=== PATIENT | female | born 1990 | race Caucasian/White ===

== ENCOUNTER 2018-12-08 00:27 | Inpatient (IN) ==
[2018-12-08 01:40] LABS: BASO# 0.02 X1000 (0.0-0.2); BASO% 0.2 % (0.0-0.8); EOS# 0.12 X1000 (0.0-0.7); EOS% 0.9 % (0.0-10.0); HEMATOCRIT 39.2 % (37.0-47.0); HEMOGLOBIN 12.6 g/dL (12.0-16.0); IMM GRAN# 0.03 X1000 (0.0-0.04); IMM GRAN% 0.2 % (0.0-0.5); LYMPH# 2.58 X1000 (1.2-3.4); LYMPH% 19.9 % (20.5-51.1); MCHC 32.1 g/dL (33-37); MCV 96.3 FL (81-99); MONO# 0.71 X1000 (0.11-0.59); MONO% 5.5 % (1.7-9.3); MPV 9.9 FL (7.4-10.4); NEUT% 73.3 % (42.2-75.2); PLT 346 X1000 (130-400); RBC 4.07 XMIL (4.2-5.4); RDW 12.6 % (11.5-14.5); WBC 12.96 X1000 (4.8-10.8)
[2018-12-08 02:02] LABS: AGAP 13; ALBUMIN 4.4 g/dL (3.5-5.0); ALKALINE PHOSPHATASE 92 U/L (32-104); AMYLASE 50 U/L (20-200); BUN 9 mg/dL (8-22); CALCIUM 9.6 mg/dL (8.8-10.2); CHLORIDE 102 mmol/L (98-107); COSMO 276; CREATININE 0.7 mg/dL (0.5-0.9); ESTIMATED GFR > 60; GLUCOSE 95 mg/dL (70-104); GOT 11 U/L (10-30); GPT 9 U/L (10-36); LIPASE 23 U/L (13-60); POTASSIUM 3.5 mmol/L (3.5-5.1); SODIUM 139 mmol/L (136-145); TCO2 24 mmol/L (25-35); TOTAL PROTEIN 7.7 g/dL (6.3-8.3)
[2018-12-08 02:12] LABS: BILIRUBIN URINE NEGATIVE (NEGATIVE); BLOOD URINE 4+ (NEGATIVE); CLARITY SL. CLOUDY (CLEAR); COLOR YELLOW; GLUCOSE URINE NEGATIVE (NEGATIVE); KETONE URINE NEGATIVE (NEGATIVE); LEUKOCYTES URINE 1+ (NEGATIVE); NITRITE URINE NEGATIVE (NEGATIVE); PROTEIN URINE NEGATIVE (NEGATIVE); SP GRAVITY URINE 1.015; UROBILINOGEN URINE NORMAL
[2018-12-08 02:15] LABS: URINE BACTERIA 4+ /HFP; URINE EPITHELIAL CELLS >10 /HPF (<10)
[2018-12-08 02:17] LABS: URINE WBC <10 /HPF (<10)
[2018-12-08 02:20] LABS: URINE CAST NONE SEEN /LPF; URINE RBC <10 /HPF (<10); URINE SOURCE CLEAN CATCH; URINE YEAST NONE SEEN /HPF
[2018-12-08 02:22] LABS: UR AMPHETAMINES QUAL PRESUMPTIVE POSITIVE (NONE DETECT); UR BARBITUATES QUAL NONE DETECTED (NONE DETECT); UR BENZODIAZEPIN QUAL NONE DETECTED (NONE DETECT); UR CANNABINOIDS QUAL PRESUMPTIVE POSITIVE (NONE DETECT); UR COCAINE QUAL NONE DETECTED (NONE DETECT); UR METHADONE QUAL NONE DETECTED (NONE DETECT); UR METHAMPHETAMINE QUAL PRESUMPTIVE POSITIVE (NONE DETECT); UR OPIATES QUAL NONE DETECTED (NONE DETECT); UR OXYCODONE QUAL NONE DETECTED (NONE DETECT); UR PCP QUAL NONE DETECTED (NONE DETECT); UR PROPOXYPHENE QUAL NONE DETECTED (NONE DETECT); UR TCA QUAL NONE DETECTED (NONE DETECT)
[2018-12-08] MEDS ORDERED: TORADOL IV ONE (03:15)
--- NOTE | 2018-12-08 05:47 | PROVIDER DOCUMENTATION ---
This chart was entered by Rafia Walker Scribe, acting as scribe for Rusty Boyd MD. HPI-Abdominal Pain/GI Problem - General Chief Complaint: Abdominal Pain Stated Complaint: ABD PAIN Time Seen by Provider: 12/08/18 00:54 Source: patient Allergies/Adverse Reactions: Patient Allergies Allergy/AdvReac Type Severity Reaction Status Date / Time STENTS Allergy Unknown Uncoded 12/08/18 00:47 - History of Present Illness-ABD Nature of Presenting Problems: pt is a 28 yr old female presenting with 1 day complaint of gen abdominal pain concentrated at RLQ, pt denies any nausea/vomiting or diarrhea, no urinary complaints. pt does admit hx of bladder problems and kidney stones. denies any flank or back pain Abdominal Pain Onset Location: reports: generalized abdomen Pain Radiation: reports: RLQ Quality of Pain: reports: aching Severity in ED: reports: moderate Onset/Duration: reports: this morning Timing: reports: still present Activities at Onset: reports: rest Exposure to sick contacts?: No Modifying Factors: improves with: nothing Associated Symptoms: denies: back/neck pain, constipation, diarrhea, fever/chills, genitourinary problems, nausea, vomiting Rectal Bleeding: reports: none Emesis Description: reports: none Bruising or Bleeding Gums?: No Similar Symptoms Previously?: No Recently seen or treated by another doctor?: No Review of Systems - Adult - REVIEW OF SYSTEMS - ADULT Constitutional: denies: chills, fever Eyes: reports: no symptoms reported Ears, Nose, Mouth & Throat: denies: ear pain, sinus problem, throat pain Cardiovascular: denies: chest pain, palpitations, syncope Respiratory: denies: cough, shortness of breath Gastrointestinal: reports: abdominal pain. denies: diarrhea, nausea, vomiting Genitourinary: denies: dysuria, frequency, flank pain Musculoskeletal: denies: back pain, joint pain, neck pain Integumentary: reports: no symptoms reported Neurological: denies: dizziness/vertigo, headache/migraines Psychiatric: reports: no symptoms reported Endocrine: reports: no symptoms reported Hematologic/Lymphatic: reports: no symptoms reported Allergic/Immunologic: reports: no symptoms reported All Other Systems: Reviewed and Negative Past History - Adult - PAST MEDICAL HISTORY-ADULT Review of Records: reports: Old Records Reviewed, Nursing Assessment Review, Medications Reviewed, Social history reviewed & non-contributory. Major Childhood Illnesses: reports: denies history Cardiovascular: reports: denies history Respiratory: reports: denies history Gastrointestinal: reports: denies history Obstetrical/Gynecological: reports: denies history Genitourinary: reports: kidney stones Musculoskeletal: reports: denies history Neurological: reports: denies history Endocrine/Immune: reports: denies history Other Conditions: reports: denies history - PRIOR SURGERIES/PROCEDURES Surgical/Procedure History: reports: other (stents in kidneys.) - IMMUNIZATION STATUS Childhood Immunizations: See Nurse Assessment Flu Vaccine: See Nurse Assessment - FAMILY HISTORY Family History: reviewed, not pertinent - SOCIAL HISTORY Smoking: cigarettes Provider spent 3-5 mins advising pt. on dangers of tobacco.: Discussed manners to quit use, and f/u contacts for add'l counseling. Living Situation: family Physical Exam-General - PHYSICAL EXAM-ADULT Initial Vital Signs Reviewed: Yes - CONSTITUTIONAL General Appearance: appears well, alert, no apparent distress - EYES Eyes: PERRL/EOMI - HEAD, EARS, NOSE, MOUTH & THROAT HENMT: normocephalic/atraumatic, moist mucous membranes, normal ENT inspection - NECK Neck: non-tender, full range of motion, supple, normal inspection - RESPIRATORY Respiratory: chest non-tender, lungs clear, normal breath sounds - CARDIOVASCULAR Cardiovascular: normal peripheral pulses, regular rate, rhythm, no edema - GASTROINTESTINAL (ABDOMEN) Abdominal Exam: normal bowel sounds, soft, tenderness (gen tenderness with greater tenderness at RLQ) - LYMPHATIC Lymphatic: no adenopathy - MUSCULOSKELETAL Back Exam: normal inspection, no CVA tenderness, no vertebral tenderness Extremity: normal range of motion, non-tender, normal gait, normal inspection - SKIN Integumentary: normal color, normal turgor, warm/dry - NEUROLOGIC Neurologic: grossly normal - PSYCHIATRIC Psych/Mental Status: normal mood/affect Progress - PLAN OF CARE/RESULTS Progress/Plan/Lab Results: Vital Signs - 8 hr 12/08/18 00:40 Temperature 97.9 F Pulse Rate 101 H Respiratory Rate 18 Blood Pressure 107/73 O2 Sat by Pulse Oximetry 100 Orders Category Date Time Status ED: Urine Bedside ORDERED Care 12/08/18 00:55 Active AMYLASE [CHEM] Stat Lab 12/08/18 00:55 Ordered CBC WITH ELECTRONIC DIFF [HEME] Stat Lab 12/08/18 00:55 Uncollected COMPREHENSIVE METABOLIC PANEL [CHEM] Stat Lab 12/08/18 00:55 Uncollected LIPASE [CHEM] Stat Lab 12/08/18 00:[address] W/POSS RFLX CULT [URINALYSIS] Stat Lab 12/08/18 00:55 Uncollected Result Diagrams: 12/08/18 01:30 12/08/18 01:30 - CONSULTS/PCP/HOSPITALIST Notification #1 *Consult/PCP/Hospitalist*: Dr Khan ([employer]) Time Discussed: 05:44 Consult Disposition: Will see in ED (At [facility]), other (Asked for pt to be sent to [facility].) Departure - Departure Date of Disposition Decision: 12/08/18 Time of Disposition Decision: 05:46 DIAGNOSIS: Ovarian cyst, Abdominal pain, Substance abuse, UTI (urinary tract infection) Disposition: ADMITTED INPATIENT 09 Certified Medical Emergency: Emergent Condition: Fair Referrals and Follow-Ups: None,PCP [Primary Care Provider] - - Critical Care Note This patient required my direct & personal management of CC.: Yes Attestation - Physician/ MOISES Attestation Patient care was provided by Advanced Practice Provider:: No The physician spent face to face time with patient:: Yes Advanced Practice Provider documentation review:: Supervising physician onsite and consulted in the evaluation and care of this patient. The physician did have a face to face encounter with the patient. This chart was documented by the indicated scribe, (Rafia Walker Scribe) and accurately reflects the services I performed and decisions made by me, Rusty Boyd MD, as attested by the provider's signature.
--- NOTE | 2018-12-08 07:39 | Diag Imaging Result Doc PS360 ---
EXAM: US PELVIC NON-OB (LIMITED) 12/08/2018 HISTORY: possible ovarian torsion TECHNIQUE: Endovaginal scan COMMENT: The uterus measures 6.8 x 4.1 x 2.4 cm. The endometrial stripe is not well demonstrated in the fundus but in the lower uterine segment measures approximately 5 mm. What appears to be the right ovary is enlarged measuring 5.8 x 5.5 x 4.9 cm with a relatively homogeneous isoechoic appearance to the uterus. There is an adjacent probably complex fluid collection posterior to this. There is color Doppler flow around the periphery of these abnormalities. Correlating with previous ultrasonography on 07/13/2018, and CT examinations of this date, 07/13/2018, and 06/02/2015, there has been long-standing pelvic inflammatory changes and bilateral ovarian cysts, particularly at the time of the previous examination of 07/13/2018 at which time the left ovary exceeded 6 cm in greatest dimension. The possibility of a tubo-ovarian abscess on the right and/or hydrosalpinx is suggested. The findings may also be related to long-standing endometriosis, which would be consistent with the relatively hyperechoic appearance of the left ovarian cyst on today's study. IMPRESSION: Hemorrhagic left ovarian cyst versus endometrioma. The possibility of long-standing or recurrent pelvic inflammatory disease cannot be excluded. Electronically signed by Jakob Trejo 12/08/2018 7:36 AM
--- NOTE | 2018-12-08 07:48 | Diag Imaging Result Doc PS360 ---
EXAM: CT ABD/PELVIS W/IV CONT ONLY 12/08/2018 HISTORY: abdo pain, RLQ TECHNIQUE: This exam was performed using automated exposure control, adjustment of mA or kV according to patient size, and/or use of iterative reconstruction technique. COMMENT: The current examination is compared with 07/13/2018 and 06/02/2015. There is no evidence of acute disease in the visualized portion of the chest. The liver, spleen, adrenal glands, pancreas, and kidneys are within normal limits. The gallbladder is not distended. There are no apparent stones. There is a fair amount of stool in the colon. Small bowel is not distended. Pelvis: The appendix is normal in appearance. There is a multilocular cystic mass in the left ovary measuring 5.8 cm in greatest axial dimension. The largest loculation is larger than on the previous study of 07/13/2018 however the overall size of the ovary may be somewhat smaller. Given the appearance on ultrasonography this is likely hemorrhagic and possibly an endometrioma. There is also somewhat loculated and enhancing fluid collections posteriorly and laterally on the right which may also be related to hemorrhagic cyst, hydrosalpinx or pelvic inflammatory disease. The urinary bladder is unremarkable. The regional skeleton is intact. IMPRESSION: Pelvic inflammatory process of long-standing with enlarged and multicystic left ovary. Given the appearance on ultrasonography of the largest loculation on the left, this is likely hemorrhagic and/or an endometrioma. Electronically signed by Jakob Trejo 12/08/2018 7:46 AM
[2018-12-08 08:37] LABS: BASO# 0.03 X1000 (0.0-0.2); BASO% 0.3 % (0.0-0.8); EOS% 1.9 % (0.0-10.0); HEMOGLOBIN 11.6 g/dL (12.0-16.0); IMM GRAN# 0.02 X1000 (0.0-0.04); IMM GRAN% 0.2 % (0.0-0.5); LYMPH# 3.57 X1000 (1.2-3.4); LYMPH% 34.6 % (20.5-51.1); MCH 31.1 PG (27-31); MCHC 32.2 g/dL (33-37); MCV 96.5 FL (81-99); MONO# 0.67 X1000 (0.11-0.59); MONO% 6.5 % (1.7-9.3); MPV 9.6 FL (7.4-10.4); NEUT# 5.82 X1000 (1.4-6.5); NEUT% 56.5 % (42.2-75.2); PLT 347 X1000 (130-400); RBC 3.73 XMIL (4.2-5.4); RDW 12.7 % (11.5-14.5); WBC 10.31 X1000 (4.8-10.8)
[2018-12-08] MEDS ORDERED: ZOFRAN PO PRN (09:45)
[2018-12-08] MEDS ORDERED: MEFOXIN 2 GM/D5W IV SCH (10:00)
[2018-12-08 10:19] LABS: AGAP 12; ALB/GLOB RATIO 1.2; ALBUMIN 3.8 g/dL (3.5-5.0); ALKALINE PHOSPHATASE 79 U/L (32-104); BUN 8 mg/dL (8-22); CALCIUM 8.4 mg/dL (8.8-10.2); CHLORIDE 102 mmol/L (98-107); COSMO 274; CREATININE 0.7 mg/dL (0.5-0.9); ESTIMATED GFR > 60; GLUCOSE 99 mg/dL (70-104); GOT 11 U/L (10-30); GPT 7 U/L (10-36); POTASSIUM 3.8 mmol/L (3.5-5.1); SODIUM 138 mmol/L (136-145); TCO2 24 mmol/L (25-35); TOTAL BILIRUBIN 0.23 mg/dL (0.20-1.00)
[2018-12-08] MEDS: MOTRIN PO PRN ×2 (10:36→21:19)
--- NOTE | 2018-12-08 12:23 | HISTORY AND PHYSICAL ---
ADMITTING PHYSICIAN: France Mcdonald DO. CHIEF COMPLAINT: Abdominal pain. HISTORY OF PRESENT ILLNESS: A 28-year-old, G 0, who presented to the emergency department on 12/07/2018 at approximately 11 p.m. with complaint of right lower quadrant pain. She describes the pain as sharp pain and shooting pains in her right lower quadrant. She states the pain started at 9am on 12/07. Pain is worsened by walking and moving. The pain has been improved with nothing. She denies any dysuria. She denies any back pain. She denies any nausea, vomiting, or diarrhea. She denies any fever or chills. CT of the abdomen and pelvis in the ER showed a pelvic inflammatory process of longstanding with an enlarging multicystic left kidney. Pelvic ultrasound in the ER showed a hemorrhagic left ovarian cyst versus endometrioma and a possible tubo-ovarian abscess versus hydrosalpinx on the right. The patient has a history of gonorrhea infection that was diagnosed in September. She states she was treated and did not have further sexual activity with that partner. She denies any vaginal bleeding or abnormal discharge. Her last menstrual period was 12/02/2018. Urine test negative in the ER. She does have a history of pelvic pain and presented to the ER in July with similar symptoms and similar findings on ultrasound. She also has a history of illicit drug use and last smoked methamphetamines 2 days ago. REVIEW OF SYSTEMS: Negative except as mentioned in the HPI. GYNECOLOGIC HISTORY: She is unsure of her last Pap smear but states she has had one done in the last several years. She has a history of chlamydia that was diagnosed in 2008 and a history of gonorrhea that was diagnosed in September of 2018. She states she is not currently sexually active but was approximately one month ago. PAST MEDICAL HISTORY: Denies. MEDICATIONS: None. ALLERGIES: No known drug allergies. SURGICAL HISTORY: History of ureteral stent placement secondary to kidney stones at age 20. SOCIAL HISTORY: She smokes 1 pack per day for 10 years. She denies any alcohol use. Urinary drug screen was positive for methamphetamines and marijuana. Initially, she denied any drug use but after a conversation, she did admit to recently smoking methamphetamines 2 days ago. FAMILY HISTORY: Denies. VITAL SIGNS: Temperature 97.8 degrees, heart rate 89, respiratory rate 16, blood pressure 95/59, oxygen saturation 98% on room air. LABORATORY DATA: White blood cell count 12.9, hemoglobin 12.6, hematocrit 39.2, platelets 346,000. Sodium 139, potassium 3.5, chloride 102, CO2 of 24, BUN 9, creatinine 0.7, blood sugar 95. Urinalysis, 1+ white blood cells, greater than 10 epithelial cells. Urinary drug screen positive for methamphetamines and marijuana. Urine test negative. IMAGING: CT of the abdomen and pelvis with IV contrast on 12/08/2018, there is a multilocular cystic mass in the left ovary measuring 5.8 cm in greatest axial dimension. The largest loculation is larger than on the previous study of 07/13/2018. However, the overall size of the ovary may be somewhat smaller. Given the appearance on ultrasound, this is likely hemorrhagic and possibly an endometrioma. There is also a somewhat loculated and enhancing fluid collection posteriorly and laterally on the right, which may also be related to the hemorrhagic cyst, hydrosalpinx, or pelvic inflammatory disease. The urinary bladder is unremarkable. The regional skeleton is intact. Transvaginal ultrasound on 12/08/2018, the uterus measures 6.8 x 4.1 x 2.4 cm. Endometrial stripe is not well demonstrated in the fundus but in the lower uterine segment, measures approximately 5 mm. What appears to be the right ovary is enlarged, measuring 5.8 x 5.5 x 4.9 cm with a relatively homogeneous isoechoic appearance to the uterus. There is color flow Doppler around the periphery of these abnormalities. There is an adjacent, probably complex fluid collection posterior to this. Correlating with previous ultrasound on 07/13/[address] exam of this date, there have been longstanding pelvic inflammatory changes and bilateral ovarian cysts, particularly at the time of the previous exam of 07/13/2018, at which time the left ovary exceeded 6 cm in greatest dimension. The possibility of a tubo-ovarian abscess on the right and/or hydrosalpinx is suggested. The findings may also be related to long-standing endometriosis which would be consistent with the relatively hyperechoic appearance of the left ovarian cyst. Impression: Hemorrhagic left ovarian cyst versus endometrioma. The possibility of long-standing or recurrent pelvic inflammatory disease cannot be excluded. PHYSICAL EXAMINATION: GENERAL: Alert, in no acute distress. CARDIOVASCULAR: Regular rate and rhythm. No murmurs, rubs, or gallops. LUNGS: Clear to auscultation bilaterally. No respiratory distress. ABDOMEN: Soft. Tender to palpation in the right lower quadrant. No rebound, no guarding. Nondistended. No peritoneal signs. Normal bowel sounds. PELVIC: Examination deferred while in the emergency room. EXTREMITIES: No clubbing, cyanosis, or edema. Nontender. ASSESSMENT AND PLAN: A 28-year-old, 0, with right lower quadrant pain, hemorrhagic left ovarian cyst versus endometrioma, ultrasound findings suspicious for tubo- ovarian abscess versus pelvic inflammatory disease, a recent history of gonorrhea, leukocytosis, history of recent methamphetamine use. 1. Admit to medical-surgical floor. Hemodynamically stable, afebrile. 2. Repeat CBC to assess leukocytosis and stability of hemoglobin. Trend CBC daily. 3. Will start cefoxitin 2 g intravenously every 6 hours and doxycycline 100 mg by mouth every 12 hours for suspected tubo-ovarian abscess versus pelvic inflammatory disease. 4. check urine gonorrhea and chlamydia. 5. Analgesics and antiemetics as needed. 6. Intravenous fluid hydration with lactated Ringer's at 125 an hour. 7. The patient may have a regular diet but nothing per oral at midnight for reassessment in the morning. [facility]
[2018-12-08] MEDS: LR 1,000 ML IV SCH ×3 (12:29→22:48)
[2018-12-08] MEDS: DOXYCYCLINE PO SCH ×2 (12:29→20:15)
[2018-12-08] MEDS: MEFOXIN 2 GM/D5W 2 GM/50 ML IVPB IV SCH ×2 (12:55→18:52)
[2018-12-09] MEDS: MEFOXIN 2 GM/D5W 2 GM/50 ML IVPB IV SCH ×2 (00:02→06:38)
[2018-12-09] MEDS: LR 1,000 ML IV SCH (01:22)
[2018-12-09 07:01] LABS: BASO# 0.01 X1000 (0.0-0.2); BASO% 0.1 % (0.0-0.8); EOS# 0.14 X1000 (0.0-0.7); EOS% 1.6 % (0.0-10.0); HEMATOCRIT 33.3 % (37.0-47.0); HEMOGLOBIN 10.6 g/dL (12.0-16.0); IMM GRAN# 0.02 X1000 (0.0-0.04); IMM GRAN% 0.2 % (0.0-0.5); LYMPH# 3.49 X1000 (1.2-3.4); LYMPH% 40.8 % (20.5-51.1); MCH 31.1 PG (27-31); MCHC 31.8 g/dL (33-37); MCV 97.7 FL (81-99); MONO# 0.48 X1000 (0.11-0.59); MONO% 5.6 % (1.7-9.3); NEUT# 4.41 X1000 (1.4-6.5); NEUT% 51.7 % (42.2-75.2); PLT 289 X1000 (130-400); RBC 3.41 XMIL (4.2-5.4); RDW 12.4 % (11.5-14.5); WBC 8.55 X1000 (4.8-10.8)
--- NOTE | 2018-12-09 08:18 | PROVIDER PROGRESS NOTE ---
- Subjective Pt seen and examined. Resting comfortably in bed. Pt reports doing well, but when asked how her pain was, she states she in unsure. Pt ambulating and urinating w/o difficulty. Tolorating PO medications, denies N/V. WBC trending down. Physical Exam Objective Vital Signs - 8 hr 12/09/18 03:56 Temperature 98.3 F Pulse Rate 65 Respiratory Rate 18 Blood Pressure 106/50 O2 Sat by Pulse Oximetry 93 L - Constitutional General Appearance: appears well, alert, no apparent distress - RESPIRATORY Respiratory: lungs clear - CARDIOVASCULAR Cardiovascular: regular rate, rhythm - GASTROINTESTINAL (ABDOMEN) Abdominal Exam: non tender, soft - MUSCULOSKELETAL Extremity: no calf tenderness - PSYCHIATRIC Psych/Mental Status: normal mood/affect, oriented x 3 Active Medications Generic Name Dose Route Start Last Admin Trade Name Freq PRN Reason Stop Dose Admin Doxycycline Hyclate 100 mg 12/08/18 10:00 12/08/18 20:15 Doxycycline PO 100 mg Q12HR MARY Administration Lactated Ringer's 1,000 mls @ 125 mls/hr 12/08/18 09:45 12/09/18 01:22 Lr IV Not Given .Q8H MARY Cefoxitin Sodium 2 gm in 50 mls @ 100 mls/hr 12/08/18 11:00 12/09/18 06:38 Mefoxin 2 Gm/D5w IV 100 mls/hr Q6H MARY Administration Ibuprofen 600 mg 12/08/18 09:45 12/08/18 21:19 Motrin PO 600 mg Q6H PRN PRN Administration Mild Pain Ondansetron HCl 4 mg 12/08/18 09:45 Zofran PO Q6H PRN PRN Nausea Bedside Urine ED: Urine Bedside Start: 12/08/18 00:55 Freq: ORDERED Status: Active Protocol: Activity Type Activity Date Activity User E-Sign Co-Sign Detail Recorded Client Recorded Date Recorded By Document 12/08/18 01:43 [id number] 12/08/18 01:43 [id number] 12/08/18 01:43 Point of Care [Bedside Point of Care] -Lot # [id number] - Results Negative -Control Line Visible? Yes Laboratory Results - last 24 hr 12/08/18 12/08/18 12/08/18 01:30 08:29 08:29 WBC 10.31 RBC 3.73 L Hgb 11.6 L Hct 36.0 L MCV 96.5 MCH 31.1 H MCHC 32.2 L RDW Std Deviation 12.7 Plt Count 347 MPV 9.6 Immature Gran % (Auto) 0.2 Neut % (Auto) 56.5 Lymph % (Auto) 34.6 [place] % (Auto) 6.5 Eos % (Auto) 1.9 Baso % (Auto) 0.3 Immature Gran # (Auto) 0.02 Neut # (Auto) 5.82 Lymph # (Auto) 3.57 H [place] # (Auto) 0.67 H Eos # (Auto) 0.20 Baso # (Auto) 0.03 Sodium 138 Potassium 3.8 Chloride 102 Carbon Dioxide 24 L Anion Gap 12 BUN 8 Creatinine 0.7 Estimated GFR/1.73 m2 > 60 BUN/Creatinine Ratio 11 Glucose 99 Calculated Osmolality 274 Calcium 8.4 L Total Bilirubin 0.23 AST 11 ALT 7 L Alkaline Phosphatase 79 Total Protein 7.0 Albumin 3.8 Globulin 3.2 Albumin/Globulin Ratio 1.2 Blood Type Blood Type Confirm A POSITIVE Antibody Screen 12/08/18 12/09/18 08:29 06:32 WBC 8.55 RBC 3.41 L Hgb 10.6 L Hct 33.3 L MCV 97.7 MCH 31.1 H MCHC 31.8 L RDW Std Deviation 12.4 Plt Count 289 MPV 10.0 Immature Gran % (Auto) 0.2 Neut % (Auto) 51.7 Lymph % (Auto) 40.8 [place] % (Auto) 5.6 Eos % (Auto) 1.6 Baso % (Auto) 0.1 Immature Gran # (Auto) 0.02 Neut # (Auto) 4.41 Lymph # (Auto) 3.49 H [place] # (Auto) 0.48 Eos # (Auto) 0.14 Baso # (Auto) 0.01 Sodium Potassium Chloride Carbon Dioxide Anion Gap BUN Creatinine Estimated GFR/1.73 m2 BUN/Creatinine Ratio Glucose Calculated Osmolality Calcium Total Bilirubin AST ALT Alkaline Phosphatase Total Protein Albumin Globulin Albumin/Globulin Ratio Blood Type A POSITIVE Blood Type Confirm Antibody Screen NEGATIVE - Assessment & Plan (1) Pelvic inflammatory disease (PID) Status: Acute (2) Tubo-ovarian inflammatory disease Status: Acute - Progress Note Disposition: ASSESSMENT AND PLAN: A 28-year-old, 0, with right lower quadrant pain, hemorrhagic left ovarian cyst versus endometrioma, ultrasound findings suspicious for tubo- ovarian abscess versus pelvic inflammatory disease, a recent history of gonorrhea, leukocytosis, history of recent methamphetamine use. 1. Hemodynamically stable, afebrile. 2. Repeat CBC to assess leukocytosis shows downward trend 3. Con't cefoxitin 2 g intravenously every 6 hours and doxycycline 100 mg by mouth every 12 hours for suspected tubo-ovarian abscess versus pelvic inflammatory disease. 4. urine gonorrhea and chlamydia cx pending 5. Analgesics and antiemetics as needed. 6. Intravenous fluid hydration with lactated Ringer's at 125 an hour. 7. regular diet 8. d/c home with PO doxy 100mg and flagyl 500mg PO BID x 14 days 9. advised no coitus until f/u in office 10. counseled on condom use sto prevent ST Dexposure
[2018-12-09 08:23] VITALS: BP 108/63
[2018-12-09] MEDS: DOXYCYCLINE PO SCH (09:11)
[2018-12-09] MEDS: MOTRIN PO PRN (09:14)
== END 2018-12-09 10:07 | disposition home or self-care (01) | DRG 759 ==
LOC: ED 00:27 → P.ED 00:27 → EDIPHOLD 10:19 → 4N 12:08
PROVIDERS: ADMIT Student in an Organized Health Care Education/Training Program; ATTEND Student in an Organized Health Care Education/Training Program